=== PATIENT | female | born 2000 | race Caucasian/White ===

== ENCOUNTER 2024-12-08 17:25 | Emergency (ER) | payer BC ==
[~2024-12-08] VITALS: Ht 147.3 cm; Wt 63.6 kg
[2024-12-08 17:45] VITALS: BP 126/79; PULSE 88; RESP 18; TEMP 97.7; O2SAT 99
[2024-12-08 18:19] LABS: COVID AG,FIA SOURCE NASAL SWAB
[2024-12-08 18:54] LABS: INFLUENZA TYPE A NEGATIVE FOR TYPE A (NEGATIVE); INFLUENZA TYPE B NEGATIVE FOR TYPE B (NEGATIVE); SARS-COV2 (COVID) ANTIGEN,FIA Negative (Negative)
[2024-12-08] MEDS: CefTRIAXone SODIUM 1 GM/VIAL IM ONE (21:07)
[2024-12-08] MEDS: AZITHROMYCIN 500 MG TABLET PO ONE (21:07)
[2024-12-08] MEDS: LIDOCAINE/PF 1% 2 ML VIAL IM ONE (21:07)
[2024-12-08] MEDS ORDERED: AZIT250T9 PO (21:25)
== END 2024-12-08 21:41 | disposition home or self-care (01) ==
LOC: EMS 17:32
DX: J18.9 Pneumonia, unspecified organism (principal); J45.909 Unspecified asthma, uncomplicated; Z88.1 Allergy status to other antibiotic agents; Z20.822 Contact with and (suspected) exposure to COVID-19
CPT/HCPCS: 99284; 71045; 87426; 87804; 96372; J0456; J0696; J3490